=== PATIENT | male | born 1995 | race Caucasian/White ===

== ENCOUNTER 2021-01-08 09:59 | Emergency (ER) | payer SELFPAY ==
[~2021-01-08] VITALS: Ht 190.5 cm; Wt 81.8 kg
[2021-01-08] MEDS ORDERED: IV NORMAL SALINE 1000ML BAG 1,000 ML IV ONE (10:45)
[2021-01-08] MEDS ORDERED: BENZONATATE 100 MG CAPSULE. PO ONE (10:45)
[2021-01-08] MEDS ORDERED: KETOROLAC 30 MG/ML VIAL. IVP ONE (10:45)
--- NOTE | 2021-01-08 10:48 | PHYS DOC ---
Past Medical History Past Medical History: No Pertinent History Past Surgical History: No Surgical History Smoking Status: Unknown if ever smoked Additional Information: SMOKELESS TOBACCO Alcohol Use: Rarely General Adult EDM: Chief Complaint: MULTIPLE COMPLAINTS HPI: HPI: Patient is a 25 year old male presents to the emergency department complaining of a frontal headache for the past week that he rates a 7/10 on a 1-10 pain scale without relief from [id number] pain medications she tried for the first few days of this headache. Patient also complains of chills, stomach pain with diarrhea for the past 3 days, patient denies seeing any blood in his stool, states his diarrhea is watery brown. Patient reports a dry cough for the past day with chest pain that does not radiate. Patient states his chest pain increases with his cough. Patient reports his chest pain and abdominal pain a 7/10 on a 1-10 pain scale. Patient states that he had a recent Covid19 exposure 7 days ago. Patient denies have any flu vaccine in 2019, denies having a COVID-19 vaccine this year. Patient also complains of general tiredness daily. Patient denies any shortness of breath. Denies chest congestion or nasal congestion. Denies throat pain or ear pain. Patient denies any loss of taste or smell. Patient denies any burning with urination or pressure with urination or other urinary tract infection type signs and symptoms. Patient denies any other physical complaints or physical concerns. Patient denies allergies to medications, states he takes no prescription medications at home. Review of Systems: Review of Systems: 14 body systems of review of systems have been reviewed. See HPI for pertinent positives and negative responses, otherwise all other systems are negative, nonpertinent or noncontributory. Heart Score: C/O Chest Pain: Yes HEART Score for Chest Pain: HEART Score for Chest Pain Response (Comments) Value History Slighlty/Non-Suspicious 0 ECG Normal 0 Age < 45 0 Risk Factors No Risk Factors 0 Troponin < Normal Limit 0 Total 0 Risk Factors: Risk Factors: DM, Current or recent (<one month) smoker, HTN, HLP, family history of CAD, obesity. Risk Scores: Score 0 - 3: 2.5% MACE over next 6 weeks - Discharge Home Score 4 - 6: 20.3% MACE over next 6 weeks - Admit for Clinical Observation Score 7 - 10: 72.7% MACE over next 6 weeks - Early Invasive Strategies Allergies: Allergies: Allergies Coded Allergies Type Severity Reaction Last Updated Verified mustard Adverse Reaction Severe DIARRHEA AND "THROAT SWELLING" 01/08/21 Yes Milk Containing Products Adverse Reaction Unknown Diarrhea 01/08/21 Yes Physical Exam: PE: Constitutional: Well developed, well nourished, no acute distress, non-toxic appearance. 25-year-old male in no apparent distress. HENT: Normocephalic, atraumatic, bilateral external ears normal, oropharynx moist, no oral exudates, nose normal. Oropharynx moist, pink, no infectious p rocess appreciated, no postnasal drip, no lymphadenopathy of the head or neck appreciated, no drooling, no trismus. Eyes: PERRLA, EOMI, conjunctiva normal, no discharge. Neck: Normal range of motion, no tenderness, supple, no stridor. No meningismus signs, no nuchal rigidity appreciated. Cardiovascular:Heart rate regular rhythm, no murmur, heart sounds S1-S2 would also patient. Lungs & Thorax: Bilateral breath sounds clear to auscultation no adventitious lung sounds appreciated. Abdomen: Bowel sounds normal, soft, no tenderness, no masses, no pulsatile masses. No bruising or areas of ecchymosis on the abdomen. Skin: Warm, dry, no erythema, no rash. Back: No tenderness, no CVA tenderness. Extremities: No tenderness, no cyanosis, no clubbing, ROM intact, no edema. Distal cap refill less than 2 seconds. Neurologic: Alert and oriented X 3, normal motor function, normal sensory function, no focal deficits noted. Psychologic: Affect normal, judgement normal, mood normal. Current Patient Data: Labs: Laboratory Tests Test 01/08/21 11:09 01/08/21 12:56 White Blood Count 6.9 x10^3/uL Red Blood Count 4.80 x10^6/uL Hemoglobin 15.0 g/dL Hematocrit 43.7 % Mean Corpuscular Volume 91 fL Mean Corpuscular Hemoglobin 31 pg Mean Corpuscular Hemoglobin Concent 34 g/dL Red Cell Distribution Width 13.1 % Platelet Count 156 x10^3/uL Neutrophils (%) (Auto) 58 % Lymphocytes (%) (Auto) 27 % Monocytes (%) (Auto) 7 % Eosinophils (%) (Auto) 8 % Basophils (%) (Auto) 0 % Neutrophils # (Auto) 4.0 x10^3/uL Lymphocytes # (Auto) 1.9 x10^3/uL Monocytes # (Auto) 0.5 x10^3/uL Eosinophils # (Auto) 0.5 x10^3/uL Basophils # (Auto) 0.0 x10^3/uL Sodium Level 144 mmol/L Potassium Level 4.1 mmol/L Chloride Level 106 mmol/L Carbon Dioxide Level 29 mmol/L Anion Gap 9 Blood Urea Nitrogen 10 mg/dL Creatinine 1.0 mg/dL Estimated GFR (Cockcroft-Gault) 91.0 BUN/Creatinine Ratio 10 Glucose Level 87 mg/dL Lactic Acid Level 0.8 mmol/L Calcium Level 8.6 mg/dL Total Bilirubin 0.7 mg/dL Aspartate Amino Transf (AST/SGOT) 14 U/L Alanine Aminotransferase (ALT/SGPT) 24 U/L Alkaline Phosphatase 74 U/L Troponin I Quantitative < 0.017 ng/mL Total Protein 6.9 g/dL Albumin 4.3 g/dL Albumin/Globulin Ratio 1.7 Lipase 69 U/L Urine Collection Type Void Urine Color Yellow Urine Clarity Clear Urine pH 7.0 Urine Specific [place] 1.020 Urine Protein Negative mg/dL Urine Glucose (UA) Negative mg/dL Urine Ketones (Stick) Negative mg/dL Urine Blood Negative Urine Nitrite Negative Urine Bilirubin Negative Urine Urobilinogen Dipstick 1.0 mg/dL Urine Leukocyte Esterase Negative Urine RBC 0 /HPF Urine WBC 0 /HPF Urine Squamous Epithelial Cells Occ /LPF Urine Amorphous Sediment Present /HPF Urine Bacteria Few /HPF Current Medications Medications (Trade) Dose Ordered Sig/Marco Route PRN Reason Start Time Stop Time Status Last Admin Dose Admin Sodium Chloride 1,000 ml @ 1,000 mls/hr 1X ONCE IV 01/08/21 10:45 01/08/21 11:44 DC 01/08/21 11:16 Benzonatate (Tessalon Perle) 100 mg 1X ONCE PO 01/08/21 10:45 01/08/21 10:53 DC 01/08/21 11:16 Ketorolac Tromethamine (Toradol 30mg Vial) 30 mg 1X ONCE IVP 01/08/21 10:45 01/08/21 10:53 DC 01/08/21 11:16 Iohexol (Omnipaque 300 Mg/ml) 75 ml 1X ONCE IV 01/08/21 12:00 01/08/21 12:01 DC 01/08/21 11:46 Info (CONTRAST GIVEN -- Rx MONITORING) 1 each PRN DAILY PRN MC SEE COMMENTS 01/08/21 11:30 01/10/21 11:29 Vital Signs: Vital Signs Date Time Temp Pulse Resp B/P (MAP) Pulse Ox O2 Delivery O2 Flow Rate FiO2 01/08/21 10:15 97.8 68 18 158/89 (112) 98 Room Air 97.8 EKG: EKG: EKG performed at 1121 by ED nursing staff shows a sinus bradycardia without other ectopy with a heart rate of 50 bpm, TX interval 0.184, QTc interval 0.360, no acute STEMI, no ACS, no acute ischemia appreciated, EKG interpreted by ED attending physician Dr. Santana. Radiology/Procedures: Radiology/Procedures: PATIENT: NICOLE MONTES DE OCA ACCOUNT: [id number] : 1995 LOCATION: ER AGE: 25 SEX: M EXAM STATUS: REG ER ORD. PHYSICIAN: QUIRINO HUBBARD APRN REASON: COUGH, PUI PROCEDURE: CHEST AP ONLY Single AP view of the chest. Comparison: None. Indication: Cough, possible code infection Findings: The heart is not enlarged. There is no pneumothorax or effusion. No air space or interstitial disease. Impression: 1. No acute cardiopulmonary process. Electronically signed by: Johny Yan MD (01/08/2021 11:36 AM) [id number] DICTATED and SIGNED BY: JOHNY YAN MD DATE: 01/08/21 [id number] PATIENT: NICOLE MONTES DE OCA ACCOUNT: [id number] : 1995 LOCATION: ER AGE: 25 SEX: M EXAM STATUS: REG ER ORD. PHYSICIAN: QUIRINO HUBBARD APRN REASON: ABDOMINAL PAIN PROCEDURE: CT ABD PELV W/ IV CONTRST ONLY EXAM: CT Abdomen and Pelvis with IV contrast CLINICAL HISTORY: Reason: ABDOMINAL PAIN COMPARISON: none TECHNIQUE: Helical CT of the abdomen and pelvis was performed following the administration of intravenous contrast. Axial, coronal and sagittal reformatted images were generated. PQRS compliance statement - One or more of the following individualized dose reduction techniques were utilized for this study: 1. Automated exposure control 2. Adjustment of the mA and/or kV according to patient size 3. Use of iterative reconstruction technique FINDINGS: Lower Chest: Clear Abdomen and Pelvis: Liver, spleen, adrenal glands, pancreas and kidneys are unremarkable. No hydronephrosis. No hydroureter. Bladder wall thickening likely cystitis. Gallbladder is normal. No biliary ductal dilatation. Large volume colonic stool content is seen. No small or large bowel dilatation. No bowel obstruction. Appendix is not convincingly seen although no significant right lower quadrant periappendiceal inflammatory change. No abdominal or pelvic ascites. No abdominal or pelvic lymphadenopathy. Prominent mesenteric lymph nodes are likely reactive. Bones: No aggressive osseous lesion is seen. Bilateral L5 pars defects are seen with trace anterolisthesis of L5 on S1. IMPRESSION: 1. Bladder wall thickening may be seen with cystitis and can be correlated with urinalysis. 2. Large volume colonic stool content. No bowel obstruction. 3. Mildly prominent mesenteric lymph nodes may be reactive. No lymphadenopathy by size criteria Electronically signed by: Landon Mae MD (01/08/2021 12:41 PM) [id number] DICTATED and SIGNED BY: LANDON MAE MD DATE: 01/08/21 [id number] Course & Med Decision Making: Course & Med Decision Making Pertinent Labs and Imaging studies reviewed. (See chart for details) 25-year-old male, vital signs reviewed, presents emergency department with complaints of chills, headaches, cough, abdominal pains and chest pains for the past week after an exposure to a known COVID-19 virus patient. Will rule out cardiorespiratory component, obtain COVID-19 testing, urinalysis assay. CT abdomen pelvis, chest x-ray, EKG. Will give patient 1 L normal saline, 30 mg IV Toradol. Chest x-ray negative for acute pulmonary process, CT abdomen pelvis concerning for possible urinary tract/bladder infection however patient's urine was not infected. CT abdomen pelvis also concerning for constipation. Patient is EKG negative patient's troponin I negative, patient's heart score equals 0. Discus sed findings with patient, patient states he has diarrhea usually throughout the past 3 years daily. Recommended patient start Metamucil [id number], follow-up with his primary care for ongoing investigation of his diarrhea problems, patient is now PUI, will give work excuse for 2 days, if positive extension for 10 days, otherwise patient will be given information for the COV ID-19 virus and self-isolation. Patient's headache is resolved with medications given in the ED today. Patient has no further questions or concerns. Patient gave verbal understanding of discharge home instructions, follow-up primary care, PUI instructions, start Metamucil daily, return to ER precautions and concerns, patient was discharged home without incident. Dragon Disclaimer: Dragon Disclaimer: This electronic medical record was generated, in whole or in part, using a voice recognition dictation system. Departure Departure Impression: Primary Impression: Person under investigation for COVID-19 Additional Impressions: Chronic diarrhea Cough Disposition: HOME / SELF CARE / HOMELESS Condition: GOOD Referrals: NO PCP (PCP) SHAHEEN AGUAYO MD Additional Instructions: You are seen today in the emergency department for symptoms of the COVID-19 virus. You were tested today, please self isolate for the next 2 days, if testing comes back positive continue this for an additional 10 more days. I have written you a work excuse that will reflect this. As you have indicated, you have had diarrhea problems for several years, you have had work-ups with GI specialist. As we discussed, please follow-up with your primary care to let him go of your ongoing problems with your abdominal discomfort and diarrhea. Return to the emergency department for worsening symptoms or other concerns. I am attaching health information related to the COVID-19 virus, please review. I am also providing you a prescription for Tessalon Perle for cough. Please take as directed. You have been tested for or diagnosed with COVID-19. It is an infection caused by a new type of coronavirus. COVID-19 will cause cold-like or mild flu symptoms in most. It can cause more severe symptoms like problems breathing in some. There is no treatment for COVID-19. The body will clear the infection over time. Self-care will help to ease discomfort. Steps to Take: Self-Care Rest as needed. Healthy habits may help you feel better. Steps include: Choose healthy foods including fruits and vegetables. Drink water throughout the day. Get plenty of sleep each night. If you smoke, try to quit. It may ease breathing. Avoid alcohol. Keep Others Healthy The virus can spread to others. Droplets are released every time you sneeze or cough. The droplets can get into the mouth, nose, or eyes of people near you and lead to infection. To lower the chances of spreading COVID-19 to others: Stay at home until your doctor has said it is safe to leave. If you tested positive this will mean staying isolated until both of the following are true: At least 7 days have passed since the start of illness. You are free of fever for at least 72 hours without the use of medicine. During this time: - Avoid public areas, events, or transportation. Do not return to work or school until your doctor has said it is safe to do so. - Call ahead if you need to go to a medical center. Let them know you may have COVID-19. It will help them guide you where to go. They may also ask you to wear a facemask when you come to the office. - If you call for emergency medical services, let them know you may have COVID- 19. While at home: - Try to avoid close contact with others. Stay about 6 feet away. - If possible, spend most of your time in a separate room from others. - Use a face mask if you will be in close contact with others such as sharing a room or vehicle. - Have someone wipe down common surfaces in the home. Use household oil dipper every day on areas like doorknobs, counters, or sinks. - Cough or sneeze into a tissue. Throw the tissue away right after use. If a tissue is not available, cough or sneeze into your elbow. - Wash your hands often. Wash them after sneezing or coughing. Use soap and water and wash for at least 20 seconds. Alcohol based hand lingo cleaner can be used if soap and water is not available. - Do not prepare food for others. Avoid sharing personal items like forks, spoo ns, or toothbrushes. - Avoid close contact with pets while you are sick. There is no evidence of the virus passing to pets. This is a safety step until more is known about this virus. Isolation can be frustrating. Social interaction can help. Keep in touch with friends and family through phone and tech options. You can still interact with others in your home, just keep a safe distance of about 6 feet. Follow-up: Your doctors office will check in with you to see if there are any changes in your health. You may be asked to keep track of symptoms to share with them. They will also let you know when you are clear to be in public again. Problems to Look Out For: Contact your doctor if your recovery is not going as you expect. Get emergency care if you have problems such as: - Trouble breathing - Nonstop chest pain or pressure - Changes in awareness, confusion, or problems waking - Lips or face have bluish color - Worsening of symptoms If you think you have an emergency, call for emergency medical services right away. As taken from [facility] EMERGENCY DEPARTMENT GENERAL DISCHARGE INSTRUCTIONS Thank you for coming to [facility] Emergency Department (ED) today and trusting us with you care. We trust that you had a positive experience in our Emergency Department. If you wish to speak to the department management, you may call the Director at [phone]. YOUR FOLLOW UP INSTRUCTIONS ARE FOLLOWS: 1. Do you have a private Doctor? If you do not have a private doctor, please ask for a resource list of physicians or clinics that may be able to assist you with follow up care. 2. The Emergency Physicain has interpreted your x-rays. The X-Ray specialist will also review them. If there is a change in the findings, you will be notified in 48 hours when at all possible. 3. A lab test or culture has been done, your results will be reviewed and you w ill be notified if you need a change in treatment. ADDITIONAL INSTRUCTIONS AND INFORMATION: 1. Your care today has been supervised by a physician who is specially trained in emergency care. Many problems require more than one evaluation for a complete diagnosis and treatment. We recommend that you schedule your follow up appointment as recommended to ensure complete treatment of you illness or injury. If you are unable to obtain follow up care and continue to have a problem, or if your condition worsens, we recommend that you return to the ED. 2. We are not able to safely determine your condition over the phone nor are we able to give sound medical advice over the phone. For these safety reasons, if you call for medical advice we will ask you to come to the ED for further evaluation. 3. If you have any questions regarding these discharge instructions please call the ED at [phone]. SAFETY INFORMATION: In the interest of safety, wellness, and injury prevention; we encourage you to wear your sealbelt, if you smoke; quite smoking, and we encourage family to use a protective helmet for bicycling and other sporting events that present an increased risk for head injury. IF YOUR SYMPTOMS WORSEN OR NEW SYMPTOMS DEVELOP, OR YOU HAVE CONCERNS ABOUT YOUR CONDITION; OR IF YOUR CONDITION WORSENS WHILE YOU ARE WAITING FOR YOUR FOLLOW UP APPOINTMENT; EITHER CONTACT YOUR PRIMARY CARE DOCTOR, THE PHYSICIAN WHOSE NAME AND NUMBER YOU WERE GIVEN, OR RETURN TO THE ED IMMEDIATELY. Scripts Benzonatate (TESSALON PERLE) 100 Mg Capsule 1 CAP PO TID for COUGH, #30 CAP 0 Refills Prov: QUIRINO HUBBARD APRN 01/08/21 QUIRINO HUBBARD APRN January 08, 2021 10:48
[2021-01-08 11:20] LABS: BASO % 0 % (0-3); EOS # 0.5 x10^3/uL (0.0-0.7); EOS % 8 % (0-3); HEMATOCRIT 43.7 % (39.0-53.0); LYMPH # 1.9 x10^3/uL (1.0-4.8); LYMPH % 27 % (24-48); MEAN CORPUSCULAR HEMOGLOBIN 31 pg (25-35); MEAN CORPUSCULAR HGB CONC 34 g/dL (31-37); MEAN CORPUSCULAR VOLUME 91 fL (79-100); MONO # 0.5 x10^3/uL (0.0-1.1); MONO % 7 % (0-9); NEUT % 58 % (31-73); PLATELET COUNT 156 x10^3/uL (140-400); RED CELL DISTRIBUTION WIDTH 13.1 % (11.5-14.5); WHITE BLOOD COUNT 6.9 x10^3/uL (4.0-11.0)
--- NOTE | 2021-01-08 11:26 | EKG ---
[facility] [address] [place] [address] Test Date: 2021-01-08 Test Time: 11:21:07 Pat Name: NICOLE MONTES DE OCA Department: Room: Gender: M Regulatory Auditor: : 1995 Requested By: QUIRINO HUBBARD Order Number: [id number] Reading MD: Measurements Intervals [place] Rate: 50 P: 30 RI: 184 QRS: 48 QRSD: 86 T: 41 QT: 396 QTc: 360 Interpretive Statements SINUS RHYTHM NO SPECIFIC ECG ABNORMALITIES RI6.01 No previous ECG available for comparison
[2021-01-08] MEDS ORDERED: CONTRAST GIVEN. MC PRN (11:30)
[2021-01-08 11:33] LABS: CALCIUM 8.6 mg/dL (8.5-10.1); POTASSIUM 4.1 mmol/L (3.5-5.1)
[2021-01-08 11:37] LABS: ALBUMIN 4.3 g/dL (3.4-5.0); ALBUMIN/GLOBULIN RATIO 1.7 (1.0-1.7); TOTAL BILIRUBIN 0.7 mg/dL (0.2-1.0); TOTAL PROTEIN 6.9 g/dL (6.4-8.2)
--- NOTE | 2021-01-08 11:39 | RAD ---
Single AP view of the chest. Comparison: None. Indication: Cough, possible code infection Findings: The heart is not enlarged. There is no pneumothorax or effusion. No air space or interstitial diseas e. Impression: 1. No acute cardiopulmonary process. Electronically signed by: Johny Yan MD (01/08/2021 11:36 AM) [id number]
[2021-01-08] MEDS ORDERED: IOHEXOL 300 MG/ML 100ML VIAL. IV ONE (12:00)
--- NOTE | 2021-01-08 12:43 | RAD ---
EXAM: CT Abdomen and Pelvis with IV contrast CLINICAL HISTORY: Reason: ABDOMINAL PAIN COMPARISON: none TECHNIQUE: Helical CT of the abdomen and pelvis was performed following the administration of intrave nous contrast. Axial, coronal and sagittal reformatted images were generated. PQRS compliance statement - One or more of the following individualized dose reduction techniques wer e utilized for this study: 1. Automated exposure control 2. Adjustment of the mA and/or kV according to patient size 3. Use of iterative reconstruction technique FINDINGS: Lower Chest: Clear Abdomen and Pelvis: Liver, spleen, adrenal glands, pancreas and kidneys are unremarkable. No hydronephrosis. No hydrouret er. Bladder wall thickening likely cystitis. Gallbladder is normal. No biliary ductal dilatation. Large volume colonic stool content is seen. No small or large bowel dilatation. No bowel obstruction. Appendix is not convincingly seen although no significant right lower quadrant periappendiceal infla mmatory change. No abdominal or pelvic ascites. No abdominal or pelvic lymphadenopathy. Prominent mesenteric lymph no aure are likely reactive. Bones: No aggressive osseous lesion is seen. Bilateral L5 pars defects are seen with trace anterolisthesis o f L5 on S1. IMPRESSION: 1. Bladder wall thickening may be seen with cystitis and can be correlated with urinalysis. 2. Large volume colonic stool content. No bowel obstruction. 3. Mildly prominent mesenteric lymph nodes may be reactive. No lymphadenopathy by size criteria Electronically signed by: Landon Bernard MD (01/08/2021 12:41 PM) [id number]
[2021-01-08 13:10] LABS: BILIRUBIN,URINE NEGATIVE (NEG); CLARITY,URINE CLEAR; COLOR,URINE YELLOW; NITRITE,URINE NEGATIVE (NEG); PROTEIN,URINE NEGATIVE (NEG-TRACE)
[2021-01-08 13:21] LABS: AMORPHOUS SEDIMENT,UR PRESENT /HPF
[2021-01-08 13:22] LABS: RBC,URINE 0 /HPF (0-2); WBC,URINE 0 /HPF (0-4)
[2021-01-08 13:25] LABS: BACTERIA,URINE FEW /HPF (0-FEW)
[2021-01-08 14:19] VITALS: BP 115/70
[2021-01-08] MEDS ORDERED: BENZ100C PO (14:35)
--- NOTE | 2021-01-09 14:30 | NUR ---
IP: Informed pt of negative COVID results. Pt verbalized understanding.
== END 2021-01-08 14:55 | disposition home or self-care (01) ==
LOC: ER 09:59
DX: K52.9 Noninfective gastroenteritis and colitis, unspecified (principal); Z20.822 Contact with and (suspected) exposure to COVID-19; R05 Cough; Z91.011 Allergy to milk products; Z91.018 Allergy to other foods
CPT/HCPCS: 36415; 71045; 74177; 80053; 81001; 83605; 83690; 84484; 85025; 93005; 96361; 96374; 99285; J1885; J7030; Q9967; U0003; U0005

== ENCOUNTER 2021-11-15 19:31 | Emergency (ER) | payer SELFPAY ==
[~2021-11-15] VITALS: Ht 190.5 cm; Wt 85.5 kg
[~2021-11-15 19:31] MED LIST: BENZ100C PO
[2021-11-15] MEDS ORDERED: IV NORMAL SALINE 1000ML BAG 1,000 ML IV SCH (20:15)
[2021-11-15 20:21] LABS: FECAL OB PT POSITIVE (NEG)
[2021-11-15 20:41] LABS: BASO # 0.1 x10^3/uL (0.0-0.2); BASO % 1 % (0-3); EOS # 0.8 x10^3/uL (0.0-0.7); EOS % 9 % (0-3); HEMATOCRIT 44.3 % (39.0-53.0); HEMOGLOBIN 15.4 g/dL (13.0-17.5); LYMPH # 2.4 x10^3/uL (1.0-4.8); LYMPH % 25 % (24-48); MEAN CORPUSCULAR HEMOGLOBIN 31 pg (25-35); MEAN CORPUSCULAR HGB CONC 35 g/dL (31-37); MEAN CORPUSCULAR VOLUME 89 fL (79-100); MONO # 0.6 x10^3/uL (0.0-1.1); MONO % 6 % (0-9); NEUT # 5.7 x10^3/uL (1.8-7.7); NEUT % 60 % (31-73); PLATELET COUNT 188 x10^3/uL (140-400); RED BLOOD COUNT 4.99 x10^6/uL (4.30-5.70); WHITE BLOOD COUNT 9.6 x10^3/uL (4.0-11.0)
[2021-11-15 20:47] LABS: PROTHROMBIN TIME PATIENT 14.1 SEC (11.7-14.0)
[2021-11-15 20:48] LABS: CALCIUM 9.1 mg/dL (8.5-10.1); CREATININE 1.3 mg/dL (0.7-1.3); GFR 66.7; POTASSIUM 3.6 mmol/L (3.5-5.1)
--- NOTE | 2021-11-15 20:50 | PHYS DOC ---
Past Medical History Past Medical History: No Pertinent History Past Surgical History: No Surgical History Smoking Status: Unknown if ever smoked Alcohol Use: Rarely General Adult EDM: Chief Complaint: RECTAL BLEED HPI: HPI: Patient is a 26 year old male who presents with states 6 years ago he was having some rectal bleeding and went to a GI doctor had a colonoscopy and they said that they saw some polyps. He states since then he has had rectal bleeding almost every day but it has not been that bad. He states today it was coming out of his rectum and rolling down his leg when he stood up. He denies abdominal pain, fever, back pain, nausea, vomiting, diarrhea, dizziness, headache, syncope, numbness or tingling, chest pain, shortness of breath. Patient does not have a primary care physician. He states he drinks alcohol once a month. He states he does not take a lot of NSAIDs. [] Review of Systems: Review of Systems: Constitutional: Denies fever or chills. [] Eyes: Denies change in visual acuity. [] HENT: Denies nasal congestion or sore throat. [] Respiratory: Denies cough or shortness of breath. [] Cardiovascular: Denies chest pain or edema. [] GI: Denies abdominal pain, nausea, vomiting, bloody stools or diarrhea. + Rectal bleeding [] : Denies dysuria. [] Musculoskeletal: Denies back pain or joint pain. [] Integument: Denies rash. [] Neurologic: Denies headache, focal weakness or sensory changes. [] Endocrine: Denies polyuria or polydipsia. [] Lymphatic: Denies swollen glands. [] Psychiatric: Denies depression or anxiety. [] Heart Score: C/O Chest Pain: No Current Medications: Current Medications Medications (Trade) Dose Ordered Sig/Marco Start Time Stop Time Status Last Admin Dose Admin Sodium Chloride 1,000 ml @ 1,000 mls/hr Q1H 11/15/21 20:15 11/15/21 21:14 11/15/21 20:15 1,000 MLS/HR Allergies: Allergies: Allergies Coded Allergies Type Severity Reaction Last Updated Verified mustard Adverse Reaction Severe DIARRHEA AND "THROAT SWELLING" 01/08/21 Yes Milk Containing Products Adverse Reaction Unknown Diarrhea 01/08/21 Yes Physical Exam: PE: Constitutional: Well developed, well nourished, no acute distress, non-toxic appearance. [] HENT: Normocephalic, atraumatic, bilateral external ears normal, oropharynx moist, no oral exudates, nose normal. [] Eyes: PERRLA, EOMI, conjunctiva normal, no discharge. [] Neck: Normal range of motion, no tenderness, supple, no stridor. [] Cardiovascular:Heart rate regular rhythm, no murmur [] Lungs & Thorax: Bilateral breath sounds clear to auscultation [] Abdomen: Bowel sounds normal, soft, no tenderness, no masses, no pulsatile masses. [] Skin: Warm, dry, no erythema, no rash. [] Back: No tenderness, no CVA tenderness. [] Extremities: No tenderness, no cyanosis, no clubbing, ROM intact, no edema. [] Neurologic: Alert and oriented X 3, normal motor function, normal sensory function, no focal deficits noted. [] Psychologic: Affect normal, judgement normal, mood normal. [] Normal physical exam Current Patient Data: Labs: Laboratory Tests Test 11/15/21 20:07 11/15/21 20:27 Stool Occult Blood Positive (NEG) White Blood Count 9.6 x10^3/uL (4.0-11.0) Red Blood Count 4.99 x10^6/uL (4.30-5.70) Hemoglobin 15.4 g/dL (13.0-17.5) Hematocrit 44.3 % (39.0-53.0) Mean Corpuscular Volume 89 fL (79-100) Mean Corpuscular Hemoglobin 31 pg (25-35) Mean Corpuscular Hemoglobin Concent 35 g/dL (31-37) Red Cell Distribution Width 13.0 % (11.5-14.5) Platelet Count 188 x10^3/uL (140-400) Neutrophils (%) (Auto) 60 % (31-73) Lymphocytes (%) (Auto) 25 % (24-48) Monocytes (%) (Auto) 6 % (0-9) Eosinophils (%) (Auto) 9 % (0-3) H Basophils (%) (Auto) 1 % (0-3) Neutrophils # (Auto) 5.7 x10^3/uL (1.8-7.7) Lymphocytes # (Auto) 2.4 x10^3/uL (1.0-4.8) Monocytes # (Auto) 0.6 x10^3/uL (0.0-1.1) Eosinophils # (Auto) 0.8 x10^3/uL (0.0-0.7) H Basophils # (Auto) 0.1 x10^3/uL (0.0-0.2) Laboratory Tests 11/15/21 20:27 Vital Signs: Vital Signs Date Time Temp Pulse Resp B/P (MAP) Pulse Ox O2 Delivery O2 Flow Rate FiO2 11/15/21 19:45 98.2 97 18 133/85 (101) 98 Room Air 98.2 EKG: EKG: [] Radiology/Procedures: Radiology/Procedures: [] Impression: [facility] [address] [place], [place] [id number] IMAGING REPORT Signed PATIENT: NICOLE MONTES DE OCA ACCOUNT: [id number] : 1995 LOCATION: ER AGE: 26 SEX: M EXAM STATUS: PRE ER ORD. PHYSICIAN: SHAHEEN THOMPSON APRN REASON: RECTAL BLEEDING, OMNI 300 75 ML IV PROCEDURE: CT ABD PELV W/ IV CONTRST ONLY INDICATION: Reason: RECTAL BLEEDING, OMNI 300 75 ML IV / Spl. Instructions: / History: COMPARISON: January 08, 2021 TECHNIQUE: Axial CT images were obtained through the abdomen and pelvis with intravenous contrast. One or more of the following individualized dose reduction techniques were utilized for this examination: 1. Automated exposure control; 2. Adjustment of the mA and/or kV according to patient size; 3. Use of iterative reconstruction technique. FINDINGS: Vascular: No abdominal aortic aneurysm. Hepatobiliary: No intrahepatic biliary duct dilation. Pancreas: No peripancreatic edema. Spleen: Spleen unremarkable. Renal/Bladder: Urinary bladder is decompressed. No hydronephrosis. Gastrointestinal: Mild indistinctness of the fat adjacent to the right side of the colon. No dilated loops of bowel to suggest obstruction. Some of the loops of small bowel have mildly prominent wall. The appendix is coiled in the right lower quadrant measuring approximately 5-6 mm which is near upper limits of normal in size. On the axial images there is some apparent haziness in the fat adjacent to the appendix but when correlating with the coronal and sagittal images suspect that this is volume averaging artifact rather than edema in the area. There is some degenerative changes of the spine. 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 Pars defects at L4. IMPRESSION: * There is some mild haziness the fat adjacent to the right side of the colon. This is a nonspecific finding but causes such as a mild colitis is within the differential. Additionally there is a few small bowel loops in the left side of the abdomen with mildly prominent wall. This is commonly from peristalsis but enteritis could also have this appearance. Electronically signed by: Dong Thomas MD (11/15/2021 10:48 PM) DESKTOP- [id number] DICTATED and SIGNED BY: DONG THOMAS MD DATE: 11/15/21 [id number] 0 Course & Med Decision Making: Course & Med Decision Making Pertinent Labs and Imaging studies reviewed. (See chart for details) See HPI. Alert and oriented x4. Ambulatory steady gait. Speaks in full clear sentences. Skin pink warm and dry. Abdomen is soft and nontender. Vital signs are within normal limits. He is no longer bleeding out of his rectum at this time. Afebrile. Rectal Exam: Normal tone, No mass, Positive control, no hemorrhoids Stool: Brown/red Guaiac: Positive Blood work is unremarkable. Fecal occult stool was positive. CT is suggesting colitis. Patient is tolerating p.o. and is in no pain. He is stable. Patient will be sent home on Augmentin he can follow-up with GI. [] Aaron Disclaimer: Aaron Disclaimer: This electronic medical record was generated, in whole or in part, using a voice recognition dictation system. Departure Departure Impression: Primary Impression: Colitis Disposition: HOME / SELF CARE / HOMELESS Condition: STABLE Referrals: NO PCP (PCP) HUNTER GORDON MD Patient Instructions: Colitis Additional Instructions: Follow-up with GI as soon as possible. Drink plenty of fluids. Take medication as prescribed and with food. If you begin to not be able to tolerate food and or vomiting or having severe pain or having large amounts of rectal bleeding return to the emergency room. Scripts Amoxicillin/Potassium Clav (AMOX TR-K CLV 500-125 MG TAB) 1 Each Tablet 1 TAB PO BID, #20 TAB Prov: SHAHEEN THOMPSON APRN 11/15/21 SHAHEEN THOMPSON APRN Nov 15, 2021 20:50
[2021-11-15 20:53] LABS: ALBUMIN 4.1 g/dL (3.4-5.0); ALBUMIN/GLOBULIN RATIO 1.1 (1.0-1.7); TOTAL BILIRUBIN 0.8 mg/dL (0.2-1.0); TOTAL PROTEIN 7.8 g/dL (6.4-8.2)
[2021-11-15 21:23] LABS: BILIRUBIN,URINE NEGATIVE (NEG); CLARITY,URINE CLEAR; COLOR,URINE YELLOW; NITRITE,URINE NEGATIVE (NEG); PH,URINE 5.5 (<5.0-8.0); PROTEIN,URINE NEGATIVE (NEG-TRACE)
[2021-11-15 21:25] LABS: BACTERIA,URINE 0 /HPF (0-FEW); RBC,URINE 0 /HPF (0-2); WBC,URINE 0 /HPF (0-4)
[2021-11-15] MEDS ORDERED: CONTRAST GIVEN. MC PRN (21:30)
[2021-11-15] MEDS ORDERED: IOHEXOL 300 MG/ML 100ML VIAL. IV ONE (22:00)
--- NOTE | 2021-11-15 22:50 | RAD ---
INDICATION: Reason: RECTAL BLEEDING, OMNI 300 75 ML IV / Spl. Instructions: / History: COMPARISON: January 08, 2021 TECHNIQUE: Axial CT images were obtained through the abdomen and pelvis with intravenous contrast. One or more of the following individualized dose reduction techniques were utilized for this examinat ion: 1. Automated exposure control; 2. Adjustment of the mA and/or kV according to patient size; 3 . Use of iterative reconstruction technique. FINDINGS: Vascular: No abdominal aortic aneurysm. Hepatobiliary: No intrahepatic biliary duct dilation. Pancreas: No peripancreatic edema. Spleen: Spleen unremarkable. Renal/Bladder: Urinary bladder is decompressed. No hydronephrosis. Gastrointestinal: Mild indistinctness of the fat adjacent to the right side of the colon. No dilated loops of bowel to suggest obstruction. Some of the loops of small bowel have mildly prominent wall. T he appendix is coiled in the right lower quadrant measuring approximately 5-6 mm which is near upper limits of normal in size. On the axial images there is some apparent haziness in the fat adjacent to the appendix but when correlating with the coronal and sagittal images suspect that this is volume av eraging artifact rather than edema in the area. There is some degenerative changes of the spine. Grade 1 anterolisthesis of L5 on S1 with pars defect s. Pars defects at L4. IMPRESSION: * There is some mild haziness the fat adjacent to the right side of the colon. This is a nonspecifi c finding but causes such as a mild colitis is within the differential. Additionally there is a few s mall bowel loops in the left side of the abdomen with mildly prominent wall. This is commonly from pe ristalsis but enteritis could also have this appearance. Electronically signed by: Michele Ellison MD (11/15/2021 10:48 PM) [id number]
[2021-11-15] MEDS ORDERED: AMOX1TAB10 PO (23:03)
[2021-11-15 23:13] VITALS: BP 147/85
[2021-11-15] MEDS ORDERED: AMOXICILLIN/K CLAV 875/125MG TABLET. PO ONE (23:30)
== END 2021-11-15 23:16 | disposition home or self-care (01) ==
LOC: ER 19:31
DX: K62.5 Hemorrhage of anus and rectum (principal); Z91.011 Allergy to milk products; Z91.018 Allergy to other foods
CPT/HCPCS: 36415; 74177; 80053; 81001; 82274; 83690; 85025; 85610; 85730; 96360; 96361; 99285; J7030; Q9967